=== PATIENT | female | born 1995 | race Caucasian/White ===

== ENCOUNTER 2021-09-10 17:46 | Emergency (ER) | payer OTHER ==
[~2021-09-10] VITALS: Ht 177.8 cm; Wt 75.0 kg
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
[2021-09-10] MEDS ORDERED: MORPHINE SULFATE 10 MG/ML SYRINGE. SQ ONE (18:30)
[2021-09-10] MEDS ORDERED: ONDANSETRON ODT 4 MG TAB.RAPDIS PO ONE (18:30)
[2021-09-10] MEDS ORDERED: BACITRACIN ZINC TOPICAL OINT PACKET. TP ONE (18:30)
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
[2021-09-10 20:35] VITALS: BP 115/62
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
== END 2021-09-10 20:35 | disposition home or self-care (01) ==
LOC: ER 17:46
DX: S80.02XA Contusion of left knee, initial encounter (principal); S80.01XA Contusion of right knee, initial encounter; S70.01XA Contusion of right hip, initial encounter; V86.96XA Unspecified occupant of dirt bike or motor/cross bike injured in nontraffic accident, initial encounter; Y93.89 Activity, other specified; Y92.89 Other specified places as the place of occurrence of the external cause; Y99.8 Other external cause status
CPT/HCPCS: 72131; 72192; 73552; 73564; 81025; 99284